=== PATIENT | male | born 1965 | race Caucasian/White ===

== ENCOUNTER 2017-04-21 11:08 | Emergency (ER) | payer BC ==
[~2017-04-21] VITALS: Ht 182.9 cm; Wt 141.5 kg
[2017-04-21 12:47] LABS: BASOPHIL % 0.3 % (0-2); PLATELET COUNT 276 x10^3mcL (130-400); RED CELL DISTRIBUTION WIDTH 12.7 % (11.5-14.5)
[2017-04-21 13:07] LABS: CALCIUM 9.1 mg/dL (8.5-10.1); CARBON DIOXIDE 31.5 mmol/L (21-32); CHLORIDE SERUM 99 mmol/L (98-107); CREATININE SERUM 0.9 mg/dL (0.7-1.3); GFR1 > 60 mL/min; GLUCOSE SERUM 89 mg/dL (74-106); POTASSIUM SERUM 3.9 mmol/L (3.5-5.1); SODIUM SERUM 139 mmol/L (136-145)
[2017-04-21 13:10] LABS: AMPHETAMINE QUAL UR NONE DETECTED (NEG <=1000)
[2017-04-21 13:17] LABS: ALBUMIN 3.8 g/dL (3.4-5.0); ALKALINE PHOSPHATASE 69 U/L (46-116); ALT/SGPT 117 U/L (16-63); AST/SGOT 197 U/L (15-37); BILIRUBIN TOTAL 1.1 mg/dL (0.20-1.00); T4(THYROXINE) 9.9 ug/dL (4.7-13.3); TOTAL PROTEIN, SERUM 7.5 g/dL (6.4-8.2)
[2017-04-21 13:18] LABS: CK-MB 9.8 ng/mL (0-3.6)
[2017-04-21 16:13] VITALS: BP 140/80
== END 2017-04-21 16:19 | disposition home or self-care (01) ==
LOC: ED 11:08
PROVIDERS: Emergency Medicine
DX: R42 Dizziness and giddiness (principal); I10 Essential (primary) hypertension
CPT/HCPCS: 36415; 36600; 82962; 83880; Q0092